=== PATIENT | female | born 1975 | race Caucasian/White ===

== ENCOUNTER 2019-03-31 17:13 | Emergency (ER) | payer BC, OTHER ==
[~2019-03-31] VITALS: Ht 170 cm; Wt 116.0 kg
[2019-03-31 18:01] LABS: HEMATOCRIT 36 % (35-52); HEMOGLOBIN 10.9 G/DL (11.5-16.0); MEAN CORPUSCULAR HEMOGLOBIN 24 PG (25-34); MEAN CORPUSCULAR HGB CONC 30 G/DL (32-36); MEAN CORPUSCULAR VOLUME 78 FL (80-99); MEAN PLATELET VOLUME 11.5 FL (7.4-10.4); NEUTROPHILS % (AUTO) 67 % (42-75); PLATELET COUNT 275 10^3/uL (130-400); RED CELL DISTRIBUTION WIDTH 14.7 % (10.0-14.5); WHITE BLOOD COUNT 8.8 10^3/uL (4.3-11.0)
[2019-03-31 18:02] LABS: BASOPHILS % (AUTO) 1 % (0-10); EOSINOPHILS % (AUTO) 2 % (0-10); LYMPHOCYTES % (AUTO) 25 % (12-44); MONOCYTES % (AUTO) 6 % (0-12)
[2019-03-31 18:03] LABS: EOSINOPHILS # (AUTO) 0.2 10^3/uL (0.0-0.3); LYMPHOCYTES # (AUTO) 2.2 X 10^3 (1.0-4.0); MONOCYTES # (AUTO) 0.5 X 10^3 (0.0-1.0); NEUTROPHILS # (AUTO) 5.9 X 10^3 (1.8-7.8)
[2019-03-31 18:27] LABS: POTASSIUM 4.2 MMOL/L (3.6-5.0)
[2019-03-31 18:28] LABS: ALBUMIN 3.7 GM/DL (3.2-4.5); BILIRUBIN,TOTAL 0.2 MG/DL (0.1-1.0); CALCIUM 9.1 MG/DL (8.5-10.1); CREATININE SERUM 1.28 MG/DL (0.60-1.30); TOTAL PROTEIN 7.1 GM/DL (6.4-8.2)
--- NOTE | 2019-03-31 18:42 | ED Integumentary General ---
General Chief Complaint: General Problems/Pain Stated Complaint: RASH;FEVER Nursing Triage Note: Patient states has a new rash on stomach and underneath breasts that started approximately 3 days ago. Had a poison elisa rash that that started on march 17 on lower extremities that is not quite gone. Had fever and chills yesterday and has been more lethargic than normal. Also feels swollen and puffy. Source: patient Exam Limitations: no limitations History of Present Illness Date Seen by Provider: Mar 31, 2019 Time Seen by Provider: 17:50 Initial Comments Patient presents to ER by private conveyance with chief concern that for the past week she has been experiencing a rash for her body. Started after she was working in her garden around some poison elisa and she also spent last weekend in a hotel. Started on her legs very intensely pruritic. She had even rubbed a 1 inch sore on the top of her foot that looked infected so she stayed home from work, Doctored it and it looks better now. Now for the past couple days she's had some bad acid reflux and loose stools with subjective fever yesterday. She has not taken anything for it. She did use several topical creams Benadryl and calamine lotion for her skin without success. She's had her gallbladder removed. Allergies and Home Medications Allergies Coded Allergies: Penicillins (Verified Allergy, Unknown, 03/31/19) codeine (Verified Allergy, Unknown, 03/31/19) fentanyl (Verified Allergy, Unknown, 03/31/19) Patient Home Medication List Home Medication List Reviewed: Yes Review of Systems Review of Systems Constitutional: No chills, No diaphoresis EENTM: No ear discharge, No hearing loss Respiratory: No cough; short of breath Cardiovascular: No edema, No Hx of Intervention Gastrointestinal: see HPI; No abdominal pain, No constipation; diarrhea, heartburn; No nausea, No vomiting Genitourinary: No discharge, No dysuria Musculoskeletal: No back pain, No joint pain Past Zvcpzar-Rarldx-Vmrwnu Hx Patient Social History Alcohol Use: Rarely Uses Recreational Drug Use: No Smoking Status: Never a Smoker 2nd Hand Smoke Exposure: No Recent Foreign Travel: No Contact w/Someone Who Travel: No Recent Infectious Disease Expo: No Recent Hopitalizations: No Physical Abuse: No Sexual Abuse: No Mistreated: No Fear: No Seasonal Allergies Seasonal Allergies: No Past Medical History Surgeries: Yes (carpal tunnel; ) Gallbladder, Orthopedic Respiratory: No Cardiac: No Neurological: No Genitourinary: No Gastrointestinal: No Musculoskeletal: No Endocrine: No HEENT: No Cancer: No Psychosocial: No Integumentary: No Physical Exam Vital Signs Vital Signs - First Documented 03/31/19 17:59 Temp 36.7 Pulse 82 Resp 20 B/P (MAP) 127/67 (87) Pulse Ox 97 Capillary Refill : Less Than 3 Seconds General Appearance: WD/WN, no apparent distress HEENT: PERRL/EOMI, pharyngeal erythema; No tonsillar exudate Cardiovascular: normal peripheral pulses, regular rate, rhythm Respiratory: lungs clear, normal breath sounds, no respiratory distress, no accessory muscle use Gastrointestinal: normal bowel sounds, non tender, soft Neurologic/Psychiatric: alert, normal mood/affect, oriented x 3 Skin: rash (itchy disseminated rash looks like small erythematous punctate sores all over her body) Progress/Results/Core Measures Results/Orders Lab Results Laboratory Tests Test 03/31/19 17:54 Range/Units White Blood Count 8.8 4.3-11.0 10^3/uL Red Blood Count 4.59 4.35-5.85 10^6/uL Hemoglobin 10.9 L 11.5-16.0 G/DL Hematocrit 36 35-52 % Mean Corpuscular Volume 78 L 80-99 FL Mean Corpuscular Hemoglobin 24 L 25-34 PG Mean Corpuscular Hemoglobin Concent 30 L 32-36 G/DL Red Cell Distribution Width 14.7 H 10.0-14.5 % Platelet Count 275 130-400 10^3/uL Mean Platelet Volume 11.5 H 7.4-10.4 FL Neutrophils (%) (Auto) 67 42-75 % Lymphocytes (%) (Auto) 25 12-44 % Monocytes (%) (Auto) 6 0-12 % Eosinophils (%) (Auto) 2 0-10 % Basophils (%) (Auto) 1 0-10 % Neutrophils # (Auto) 5.9 1.8-7.8 X 10^3 Lymphocytes # (Auto) 2.2 1.0-4.0 X 10^3 Monocytes # (Auto) 0.5 0.0-1.0 X 10^3 Eosinophils # (Auto) 0.2 0.0-0.3 10^3/uL Basophils # (Auto) 0.0 0.0-0.1 10^3/uL Sodium Level 141 135-145 MMOL/L Potassium Level 4.2 3.6-5.0 MMOL/L Chloride Level 104 98-107 MMOL/L Carbon Dioxide Level 23 21-32 MMOL/L Anion Gap 14 5-14 MMOL/L Blood Urea Nitrogen 14 7-18 MG/DL Creatinine 1.28 0.60-1.30 MG/DL Estimat Glomerular Filtration Rate 46 BUN/Creatinine Ratio 11 Glucose Level 103 70-105 MG/DL Calcium Level 9.1 8.5-10.1 MG/DL Corrected Calcium 9.3 8.5-10.1 MG/DL Total Bilirubin 0.2 0.1-1.0 MG/DL Aspartate Amino Transf (AST/SGOT) 17 5-34 U/L Alanine Aminotransferase (ALT/SGPT) 11 0-55 U/L Alkaline Phosphatase 83 40-136 U/L Total Protein 7.1 6.4-8.2 GM/DL Albumin 3.7 3.2-4.5 GM/DL Vital Signs/I&O 03/31/19 17:59 Temp 36.7 Pulse 82 Resp 20 B/P (MAP) 127/67 (87) Pulse Ox 97 Blood Pressure Mean: 87 POS Progress Progress Note : Time: 18:37 Progress Note Her rash is consistent with arthropod bites possibly scabies or even bedbugs. We have instructed her how to treat with permethrin and clean her house and recommended she contact an agricultural produce washer. She appears to have some kind of viral gastroenteritis and colitis as well. They seem to be unrelated illnesses. We'll give her return precautions. Departure Impression Primary Impression: Scabies Additional Impression: Gastroenteritis and colitis, viral Disposition: 01 HOME, SELF-CARE Condition: Stable Departure-Patient Inst. Decision time for Depature: 18:38 Referrals: NO,LOCAL PHYSICIAN (PCP/Family) Primary Care Physician Patient Instructions: Viral Gastroenteritis, Adult (DC), Scabies (DC) Add. Discharge Instructions: To treat the skin rash apply permethrin over your entire body from your neck down to your toes. Wear long pajamas and sleep with the permethrin on overnight. In the morning you may shower it off and then you should clean the house by vacuuming all surfaces and running your linens and clothes through on a regular wash and dry cycle. Anything that cannot be easily washed should be bagged up in a garbage bag and sealed airtight for 2 weeks. At the end of 2 weeks you should repeat the overnight application of permethrin from your neck down to her toes and wash it off in the morning. If treatment fails then it's recommended that you call an agricultural produce washer to come inspect your home. You may use Claritin/loratadine 10 mg daily or Zyrtec/cetirizine 10 mg daily for the itching. Benadryl 25-50 mg every 6 hours as needed for breakthrough itching. So far your symptoms of diarrhea and acid reflux seem mild and probably will be self-limited. You can treat the acid reflux with Pepcid 20 mg once or twice a day. You may treat diarrhea with 2 tablets of Imodium followed by one tablet every 4 hours afterwards until you're no longer having loose, watery diarrhea. If you have nausea you may take ondansetron one tablet under the tongue every 6 hours as needed. If your symptoms worsen or you begin to have other concerning symptoms such as severe abdominal pain then you should return to the nearest ER or follow up with your doctor for further evaluation. All discharge instructions reviewed with patient and/or family. Voiced understanding. Scripts Famotidine (Pepcid) 20 Mg Tablet 20 MG PO BID PRN for GI UPSET for 14 Days, #30 TAB 0 Refills Prov: FOUZIA MULLER 03/31/19 Permethrin (Permethrin) 60 Gm Cream..g. 60 GM TP [id number] for 14 Days, #2 TUBE 0 Refills Prov: FOUZIA MULLER 03/31/19 Ondansetron (Ondansetron Odt) 4 Mg Tab.rapdis 4 MG PO Q6H PRN for NAUSEA/VOMITING, #8 TAB 0 Refills Prov: FOUZIA MULLER 03/31/19 Work/School Note: Work Release Form Date Seen in the Emergency Department: Mar 31, 2019 Return to Work: Apr 01, 2019 Restrictions: No Restrictions FOUZIA MULLER Mar 31, 2019 18:42 POS
[2019-03-31] MEDS ORDERED: PERM60CR4 TP (18:44)
[2019-03-31] MEDS ORDERED: ONDA4TAB11 PO (18:44)
[2019-03-31] MEDS ORDERED: FAMO-119 PO (18:44)
[2019-03-31 18:58] VITALS: BP 127/77
[2019-03-31] MEDS ORDERED: FAMOTIDINE 20 MG (PEPCID) TABLET PO ONE (19:00)
== END 2019-03-31 19:02 | disposition home or self-care (01) ==
LOC: ER FS 17:15
DX: B86 Scabies (principal); A08.4 Viral intestinal infection, unspecified; Z88.5 Allergy status to narcotic agent; Z88.0 Allergy status to penicillin
CPT/HCPCS: 36415; 80053; 85025